=== PATIENT | male | born 1955 | race Caucasian/White ===

== ENCOUNTER 2020-05-15 15:17 | Emergency (ER) | payer MEDICARE, MEDICAID ==
[~2020-05-15] VITALS: Ht 177.8 cm; Wt 57.2 kg
[2020-05-15 15:24] VITALS: BP 150/81
[2020-05-15] MEDS ORDERED: PERMETHRIN60 GM TOPIC (15:33)
[2020-05-15] MEDS ORDERED: BENADRYL ALLERG25 M1 PO (15:33)
[2020-05-15 15:35] VITALS: BP 152/78
--- NOTE | 2020-05-15 15:35 | NUR ---
ED Nurse Note: Pt walked into ED for scabies on general entire body. Pustules have no drainage. Pt is alert and orientedx4, ambulatory. Pt has been seen by ERMD. Pt denies bodyaches, chills, nausea, vomiting.
--- NOTE | 2020-05-15 15:35 | Emergency Room Report ---
History of Present Illness General Chief Complaint: Skin Rash/Abscess Source: Patient Present Illness HPI Disclaimer: Please note that this report is being documented using [employer] technology. This can lead to erroneous entry secondary to incorrect interpretation by the dictating instrument. HPI: 62-year-old male presents for evaluation of itchy rash. Symptoms began 4 days ago. He reports seeing bugs over him earlier which he has picked off. Reports itching over his arms and torso and legs but not his face. Denies skin breakdown or significant bleeding aside from that caused by his own excoriations. Denies swelling of the skin. Denies fever or chills. No other family members in the house. PMH: Reviewed PSH: Reviewed Allergies: Reviewed Social Hx: Reviewed Allergies: Coded Allergies: No Known Allergies (Unverified , 05/15/20) COVID-19 Screening Contact w/high risk pt: No Experienced COVID-19 symptoms?: No COVID-19 Testing performed CHALK TESTER: No Nursing Documentation-PMH Past Medical History: No History, Except For Hx Cardiac Problems: Yes - [place] Review of Systems All Other Systems: negative except mentioned in HPI Physical Exam Vital Signs Date Time Temp Pulse Resp B/P (MAP) Pulse Ox O2 Delivery O2 Flow Rate FiO2 05/15/20 15:24 98.1 69 17 150/81 (104) 98 Room Air General: Awake and alert, no acute distress HEENT: NC/AT. EOMI. Resp: Normal work of breathing Skin: Multiple scabs and excoriations over the arms, legs and torso. No skin findings on the face. No ulcerations. No edema. No erythema. No warmth. No signs of systemic infection. MSK: Normal tone and bulk. Moving all extremities. No obvious deformity. Neuro: Awake and alert. Mentating appropriately Medical Decision Making Diagnostic Impression: Primary Impression: Rash Additional Impression: Scabies ER Course 62-year male presenting for evaluation of itchy rash over his body. Most consistent with scabies. No signs of significant cellulitis or other disseminated infection. Will treat with Benadryl and permethrin cream. Discussed handling of his linens and bedding. Instructed to return with new or worsening symptoms. He understands agrees with this treatment plan. Last Vital Signs Date Time Temp Pulse Resp B/P (MAP) Pulse Ox O2 Delivery O2 Flow Rate FiO2 05/15/20 15:24 98.1 69 17 150/81 (104) 98 Room Air Disposition: HOME, SELF-CARE Condition: Stable Scripts Diphenhydramine Hcl (BENADRYL ALLERGY) 25 Mg Tablet 25 MG PO Q6HR for 10 Days, #3 TAB Prov: John Lundberg MD 05/15/20 Permethrin* (ELIMITE*) 60 Gm Cream..g. 1 APPLIC TOPIC ONCE, #2 TUBE 0 Refills Apply cream from head to toe; leave on for 8-14 hours before washing off with water Prov: John Lundberg MD 05/15/20 Referrals: [facility] [place]. [facility] Patient Instructions: Pruritus Additional Instructions: Permethrin cream for all family members -Apply from neck down -Leave on for 8-12hr before washing off -May reapply in 1-2wks if incomplete effect Wash all linens/clothes in hot water or bag bulky items and keep sealed for 2weeks Please follow-up with your primary care doctor in the next 1 to 3 days to discuss this emergency department visit and for reevaluation. If you have any new or worsening symptoms please return to the emergency department for reevaluation. Please note that this report is being documented using [employer] technology. This can lead to erroneous entry secondary to incorrect interpretation by the dictating instrument. John Lundberg MD May 15, 2020 15:35
--- NOTE | 2020-05-15 15:44 | NUR ---
ER DISCHARGE NOTE: Patient is cleared to be discharged per ERMD, pt is aox4, on room air, with stable vital signs. pt was given dc and prescription instructions, pt was able to verbalize understanding, pt id band removed. pt is able to ambulate with steady gait. pt took all belongings. Pt instryucted on scabies care.
== END 2020-05-15 15:44 | disposition home or self-care (01) ==
LOC: EMR 15:30
DX: B86 Scabies (principal); I25.2 Old myocardial infarction
CPT/HCPCS: 99282